=== PATIENT | female | born 1980 | race Two or more races ===

== ENCOUNTER 2018-04-07 18:51 | Emergency (ER) | payer SELFPAY ==
[~2018-04-07] VITALS: Ht 157.5 cm; Wt 64.9 kg
[~2018-04-07 18:51] MED LIST: ALPR1TAB10 PO; ALPR1TAB6 PO; CITA40TA12 PO; TRAZ-86 PO; TRAZ150T49 PO
[2018-04-07] MEDS ORDERED: IV NORMAL SALINE 1000ML BAG 1,000 ML IV SCH (19:19)
--- NOTE | 2018-04-07 19:23 | PHYS DOC ---
Past Medical History Past Medical History: Depression, Seizure, Other Additional Past Medical Histor: panic disorder, manic depression Past Surgical History: Cholecystectomy, Other Additional Past Surgical Histo: DENTAL BRIDGE Alcohol Use: None Drug Use: Methadone Adult General Chief Complaint Chief Complaint: FLANK PAIN HPI HPI 37-year-old female who is approximately 23 weeks , EDC 08/01/18, presents for evaluation of left flank pain. She denies any abdominal pain or vaginal bleeding. She reports frequent urination with small amounts. She is not having any dysuria or vaginal discharge. She states has had kidney infection in the past and this is feeling similar. She's not had any vomiting or fevers. Her OB doctor is at [facility]. Review of Systems Review of Systems Constitutional: Denies fever or chills [] Eyes: Denies change in visual acuity, redness, or eye pain [] HENT: Denies nasal congestion or sore throat [] Respiratory: Denies cough or shortness of breath [] Cardiovascular: No additional information not addressed in HPI [] GI: Denies abdominal pain, nausea, vomiting, bloody stools or diarrhea [] All other systems were reviewed and found to be within normal limits, except as documented in this note. Current Medications Current Medications Current Medications Medications (Trade) Dose Ordered Sig/Anuel Start Time Stop Time Status Last Admin Dose Admin Sodium Chloride 1,000 ml @ 1,000 mls/hr Q1H 04/07/18 19:19 04/07/18 20:18 DC 04/07/18 19:32 1,000 MLS/HR Allergies Allergies Allergies Coded Allergies Type Severity Reaction Last Updated Verified prochlorperazine edisylate Allergy Mild 08/15/13 Yes prochlorperazine maleate Allergy Mild 08/15/13 Yes Physical Exam Physical Exam Constitutional: Well developed, well nourished, no acute distress, non-toxic appearance. [] Cardiovascular:Heart rate regular rhythm, no murmur [] Lungs & Thorax: Bilateral breath sounds clear to auscultation [] Abdomen: Bowel sounds normal, soft, no tenderness, no masses, no pulsatile masses. [] Skin: Warm, dry, no erythema, no rash. [] Back:Left CVA tenderness. [] Neurologic: Alert and oriented X 3, normal motor function, normal sensory function, no focal deficits noted. [] Psychologic: Affect normal, judgement normal, mood normal. [] Current Patient Data Vital Signs Vital Signs Date Time Temp Pulse Resp B/P (MAP) Pulse Ox O2 Delivery O2 Flow Rate FiO2 04/07/18 20:28 88 24 111/55 (73) 100 Room Air 04/07/18 19:19 98.0 98.0 Lab Values Laboratory Tests Test 04/07/18 19:19 04/07/18 19:28 Urine Collection Type Void Urine Color Yellow Urine Clarity Clear Urine pH 7.0 Urine Specific [place] 1.025 Urine Protein Negative mg/dL (NEG-TRACE) Urine Glucose (UA) Negative mg/dL (NEG) Urine Ketones (Stick) Negative mg/dL (NEG) Urine Blood Negative (NEG) Urine Nitrite Negative (NEG) Urine Bilirubin Negative (NEG) Urine Urobilinogen Dipstick 0.2 mg/dL (0.2 mg/dL) Urine Leukocyte Esterase Trace (NEG) Urine RBC Occ /HPF (0-2) Urine WBC 1-4 /HPF (0-4) Urine Squamous Epithelial Cells Mod /LPF Urine Bacteria Few /HPF (0-FEW) Urine Mucus Mod /LPF White Blood Count 9.1 x10^3/uL (4.0-11.0) Red Blood Count 3.43 x10^6/uL (3.50-5.40) L Hemoglobin 11.4 g/dL (12.0-15.5) L Hematocrit 31.8 % (36.0-47.0) L Mean Corpuscular Volume 93 fL (79-100) Mean Corpuscular Hemoglobin 33 pg (25-35) Mean Corpuscular Hemoglobin Concent 36 g/dL (31-37) Red Cell Distribution Width 12.6 % (11.5-14.5) Platelet Count 359 x10^3/uL (140-400) Neutrophils (%) (Auto) 66 % (31-73) Lymphocytes (%) (Auto) 25 % (24-48) Monocytes (%) (Auto) 6 % (0-9) Eosinophils (%) (Auto) 2 % (0-3) Basophils (%) (Auto) 1 % (0-3) Neutrophils # (Auto) 6.0 x10^3uL (1.8-7.7) Lymphocytes # (Auto) 2.3 x10^3/uL (1.0-4.8) Monocytes # (Auto) 0.5 x10^3/uL (0.0-1.1) Eosinophils # (Auto) 0.2 x10^3/uL (0.0-0.7) Basophils # (Auto) 0.1 x10^3/uL (0.0-0.2) Sodium Level 139 mmol/L (136-145) Potassium Level 3.5 mmol/L (3.5-5.1) Chloride Level 105 mmol/L (98-107) Carbon Dioxide Level 22 mmol/L (21-32) Anion Gap 12 (6-14) Blood Urea Nitrogen 8 mg/dL (7-20) Creatinine 0.5 mg/dL (0.6-1.0) L Estimated GFR (Cockcroft-Gault) 140.4 BUN/Creatinine Ratio 16 (6-20) Glucose Level 95 mg/dL (70-99) Calcium Level 8.6 mg/dL (8.5-10.1) Total Bilirubin 0.1 mg/dL (0.2-1.0) L Aspartate Amino Transferase (AST) 11 U/L (15-37) L Alanine Aminotransferase (ALT) 16 U/L (14-59) Alkaline Phosphatase 65 U/L (46-116) Total Protein 6.8 g/dL (6.4-8.2) Albumin 2.7 g/dL (3.4-5.0) L Albumin/Globulin Ratio 0.7 (1.0-1.7) L Laboratory Tests 04/07/18 19:28 Laboratory Tests 04/07/18 19:28 EKG EKG [] Radiology/Procedures Radiology/Procedures [] Course & Med Decision Making Course & Med Decision Making Pertinent Labs and Imaging studies reviewed. (See chart for details) [She is not having any vaginal symptoms or abdominal pain, UA is negative for infection, heart tones 158-160 in emergency room, no evidence of pyelonephritis or UTI, Patient to labor and delivery floor for monitoring. Case was discussed with Dr. Sinclair who agrees with discharge and patient to go for monitoring after discharge from emergency room.] Dragon Disclaimer Dragon Disclaimer This electronic medical record was generated, in whole or in part, using a voice recognition dictation system. Departure Departure Impression: Primary Impression: Flank pain Disposition: 01 HOME, SELF-CARE Condition: STABLE Referrals: NO PCP (PCP) Patient Instructions: Flank Pain, [id number] BRITTANY DINH [employer]IC Apr 07, 2018 19:23
[2018-04-07 19:40] LABS: BASO # 0.1 x10^3/uL (0.0-0.2); BASO % 1 % (0-3); EOS # 0.2 x10^3/uL (0.0-0.7); EOS % 2 % (0-3); HEMATOCRIT 31.8 % (36.0-47.0); HEMOGLOBIN 11.4 g/dL (12.0-15.5); LYMPH # 2.3 x10^3/uL (1.0-4.8); LYMPH % 25 % (24-48); MEAN CORPUSCULAR HEMOGLOBIN 33 pg (25-35); MEAN CORPUSCULAR HGB CONC 36 g/dL (31-37); MEAN CORPUSCULAR VOLUME 93 fL (79-100); MONO # 0.5 x10^3/uL (0.0-1.1); MONO % 6 % (0-9); NEUT % 66 % (31-73); PLATELET COUNT 359 x10^3/uL (140-400); RED BLOOD COUNT 3.43 x10^6/uL (3.50-5.40); RED CELL DISTRIBUTION WIDTH 12.6 % (11.5-14.5); WHITE BLOOD COUNT 9.1 x10^3/uL (4.0-11.0)
[2018-04-07 19:46] LABS: CALCIUM 8.6 mg/dL (8.5-10.1); CREATININE 0.5 mg/dL (0.6-1.0); GFR 140.4; POTASSIUM 3.5 mmol/L (3.5-5.1)
[2018-04-07 19:48] LABS: BILIRUBIN,URINE NEGATIVE (NEG); CLARITY,URINE CLEAR; COLOR,URINE YELLOW; NITRITE,URINE NEGATIVE (NEG); PROTEIN,URINE NEGATIVE (NEG-TRACE); UROBILINOGEN,URINE 0.2 mg/dL (0.2 mg/dL)
[2018-04-07 19:51] LABS: ALBUMIN 2.7 g/dL (3.4-5.0); ALBUMIN/GLOBULIN RATIO 0.7 (1.0-1.7); TOTAL BILIRUBIN 0.1 mg/dL (0.2-1.0); TOTAL PROTEIN 6.8 g/dL (6.4-8.2)
[2018-04-07 19:59] LABS: BACTERIA,URINE FEW /HPF (0-FEW); RBC,URINE OCC /HPF (0-2); SQUAMOUS EPITHELIAL CELL,UR MOD /LPF
[2018-04-07 20:28] VITALS: BP 111/55
== END 2018-04-07 20:29 | disposition home or self-care (01) ==
LOC: ER 18:51
DX: O26.892 Other specified pregnancy related conditions, second trimester (principal); R10.9 Unspecified abdominal pain; Z90.49 Acquired absence of other specified parts of digestive tract; Z3A.23 23 weeks gestation of pregnancy; Z88.8 Allergy status to other drugs, medicaments and biological substances
CPT/HCPCS: 36415; 80053; 81001; 85025; 87086; 99284; J7030

== ENCOUNTER 2018-04-07 20:34 | Observation (INO) | payer SELFPAY ==
[2018-04-07 20:28] VITALS: BP 111/55
[2018-04-07] MEDS ORDERED: IV RINGERS,LACTATED 1000ML 1,000 ML IV PRN (20:45)
[2018-04-07 20:53] LABS: BARBITURATES NEG (NEG); BENZODIAZEPINES NEG (NEG); CANNABINOIDS NEG (NEG); COCAINE NEG (NEG); METHADONE NEG (NEG); OPIATES NEG (NEG); PHENCYCLIDINE NEG (NEG)
[2018-04-07 20:54] LABS: AMPHETAMINE/METHAMPHETAMINE NEG (NEG)
== END 2018-04-07 21:30 | disposition home or self-care (01) ==
LOC: 3 SO LND 20:34
PROVIDERS: ADMIT Obstetrics & Gynecology; ATTEND Obstetrics & Gynecology
DX: O26.892 Other specified pregnancy related conditions, second trimester (principal); R10.9 Unspecified abdominal pain; Z3A.23 23 weeks gestation of pregnancy; Z79.899 Other long term (current) drug therapy
CPT/HCPCS: 80307; G0378; G0379; G0479

== ENCOUNTER → 2020-04-25 | Outpatient (CLI) | payer MEDICAID ==
[~2020-04-25] MED LIST changes: +TRAZ-123 PO; -TRAZ-86 PO
--- NOTE | 2020-04-25 17:34 | KCIC ---
EXAM: AP and lateral views right hip DATE: 04/25/2020 12:00 AM INDICATION: Reason: Rt hip pain, pain 1 yr., no known injury / Spl. Instructions: / History: COMPARISON: No Prior FINDINGS/ IMPRESSION: No evidence of acute fracture or dislocation. Joint spaces are preserved without significant degenerative/proliferative change. IMPRESSION: Electronically signed by: Ja Maurer MD (04/25/2020 5:31 PM) [id number]
== END ==
LOC: KCIC 15:01
PROVIDERS: ATTEND Family Medicine
DX: M25.551 Pain in right hip (principal)
CPT/HCPCS: 73502

== ENCOUNTER → 2021-10-23 | Outpatient (CLI) | payer MEDICAID ==
--- NOTE | 2021-10-23 12:12 | KCIC ---
EXAM: Left shoulder, 3 views. HISTORY: Pain. COMPARISON: None. FINDINGS: 3 views of the left shoulder obtained. There is no acute fracture, dislocation or subluxati on. IMPRESSION: No acute osseous finding. Electronically signed by: Verna Stringer MD (10/23/2021 12:10 PM) [id number]
== END ==
LOC: KCIC 11:05
PROVIDERS: ATTEND Family Medicine
DX: S46.012A Strain of muscle(s) and tendon(s) of the rotator cuff of left shoulder, initial encounter (principal); M12.812 Other specific arthropathies, not elsewhere classified, left shoulder; X58.XXXA Exposure to other specified factors, initial encounter; Y93.89 Activity, other specified; Y92.89 Other specified places as the place of occurrence of the external cause; Y99.8 Other external cause status
CPT/HCPCS: 73030

== ENCOUNTER → 2021-10-30 | Outpatient (CLI) | payer MEDICAID ==
--- NOTE | 2021-10-31 08:23 | KCIC ---
EXAM: MRI left shoulder DATE: 10/30/2021 12:35 PM COMPARISON: None INDICATION: Reason: LEFT SHOULDER PAIN / Spl. Instructions: / History: Left shoulder pain and LROM i n recent weeks. Repetative heavy lifting. TECHNIQUE: Multiplanar, multisequence MRI of the left shoulder was performed without contrast. FINDINGS: Mild lateral downsloping of the distal acromion. Type I acromion. AC joint DJD with small osteophytes . Mild marrow edema centered at the AC joint. Subacromial subdeltoid bursal distention, bursitis. No shoulder joint effusion. No rotator cuff tear. Increased signal within the supraspinatus and infraspinatus tendon, tendinosis. Grossly normal muscle signal and bulk without fatty atrophy. Increased signal within the long head biceps tendon, tendinosis. No labral tear is seen. Mild thicken ing of the inferior joint capsule. No acute fracture or osteonecrosis. Articular cartilage is grossly preserved. IMPRESSION: 1. Intra-articular long head biceps tendinosis. Mild supraspinatus and infraspinatus tendinosis. No rotator cuff tear. 2. Mild thickening of the inferior joint capsule may be seen with adhesive capsulitis. 3. 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 Findings may be reactive/m echanical although low-grade sprain and contusion could also have appearance. 4. Subacromial-subdeltoid bursitis.. Electronically signed by: Ja Maurer MD (10/31/2021 8:20 AM) [id number]
== END ==
LOC: KCIC MRI 12:24
PROVIDERS: ATTEND Family Medicine
DX: M19.012 Primary osteoarthritis, left shoulder (principal); M25.712 Osteophyte, left shoulder; R60.0 Localized edema; M75.52 Bursitis of left shoulder; M75.82 Other shoulder lesions, left shoulder; M12.812 Other specific arthropathies, not elsewhere classified, left shoulder
CPT/HCPCS: 73221